=== PATIENT | male | born 1995 | race African-American/Black ===

== ENCOUNTER 2017-09-02 16:31 | Emergency (ER) | payer OTHER ==
[~2017-09-02] VITALS: Ht 172.7 cm; Wt 67.1 kg
[~2017-09-02 16:31] MED LIST: IBUPROFEN 600600 M1 PO
[2017-09-02 17:02] LABS: ABSOLUTE NEUTROPHILS 4.3 thou/uL (1.4-8.2); BASOPHILS 0.5 % (0.0-2.0); EOSINOPHILS 2.5 % (0.0-3.0); HEMOGLOBIN 14.6 gm/dL (14.0-18.0); LYMPHOCYTES 34.6 % (24.0-44.0); MCH 31.2 pg (26.0-34.0); MCHC 33.9 g/dL (28.0-37.0); MONOCYTES 6.8 % (1.0-8.0); PLATELET COUNT 280 thou/uL (150-400); POLYS 55.6 % (36.0-66.0); RBC 4.68 mil/uL (4.50-6.00); RDW 13.4 % (10.5-14.5); WBC 7.8 thou/uL (4.0-11.0)
[2017-09-02 17:03] LABS: MANUAL DIFF NO
[2017-09-02 17:05] LABS: CALCIUM 9.3 mg/dL (8.5-10.1); CREATININE 1.2 mg/dL (0.7-1.3); POTASSIUM 3.6 mmol/L (3.5-5.1)
[2017-09-02 17:11] LABS: MAGNESIUM 2.1 mg/dL (1.8-2.4)
[2017-09-02 18:45] LABS: URINE BILIRUBIN NEGATIVE (Negative); URINE BLOOD NEGATIVE (Negative); URINE COLOR YELLOW; URINE GLUCOSE-RANDOM* NEGATIVE (Negative); URINE KETONES NEGATIVE (Negative); URINE LEUKOCYTES-REFLEX NEGATIVE (Negative); URINE PROTEIN (DIPSTICK) NEGATIVE (Negative); URINE SPECIFIC GRAVITY 1.015 (1.005-1.035); URINE UROBILINOGEN 0.2 E.U./dl (0.2-1.0)
[2017-09-02 19:00] VITALS: BP 118/72
== END 2017-09-02 19:11 | disposition home or self-care (01) ==
LOC: ER 16:31
PROVIDERS: Emergency Medicine
DX: R55 Syncope and collapse (principal)

== ENCOUNTER 2018-09-04 23:28 | Emergency (ER) | payer OTHER ==
[~2018-09-04] VITALS: Ht 175.3 cm; Wt 59.0 kg
[2018-09-05] MEDS ORDERED: ZOFRAN ODT4 MG PO (00:39)
[2018-09-05] MEDS ORDERED: IBUPROFEN 600600 M1 PO (00:41)
[2018-09-05 00:49] VITALS: BP 130/78
== END 2018-09-05 00:49 | disposition home or self-care (01) ==
LOC: ER 23:28
DX: R59.0 Localized enlarged lymph nodes (principal); R11.2 Nausea with vomiting, unspecified; R53.81 Other malaise

== ENCOUNTER 2020-04-08 17:19 | Emergency (ER) | payer OTHER ==
[~2020-04-08] VITALS: Ht 175.3 cm; Wt 64.9 kg
[~2020-04-08 17:19] MED LIST changes: +ZOFRAN ODT4 MG PO
[2020-04-08] MEDS ORDERED: NOHOMEMEDICATIONS (18:07)
[2020-04-08] MEDS ORDERED: MOBIC7.5 MG PO (18:53)
[2020-04-08] MEDS ORDERED: ONDANSETRON HCL4 M2 PO (18:53)
[2020-04-08] MEDS ORDERED: CYCLOBENZAPRINE5 MG PO (18:53)
[2020-04-08 19:04] VITALS: BP 126/64
== END 2020-04-08 19:05 | disposition home or self-care (01) ==
LOC: ER 17:19
DX: R51 Headache (principal); M54.2 Cervicalgia; R11.0 Nausea; V49.49XA Driver injured in collision with other motor vehicles in traffic accident, initial encounter; Y93.89 Activity, other specified; Y92.89 Other specified places as the place of occurrence of the external cause; Y99.8 Other external cause status